=== PATIENT | female | born 1980 | race Caucasian/White ===

== ENCOUNTER 2016-05-05 17:28 | Emergency (ER) | payer MEDICAID ==
[~2016-05-05] VITALS: Ht 165.1 cm; Wt 63.0 kg
[2016-05-05 17:30] VITALS: Ht 165.1 cm; Wt 63.0 kg
[2016-05-05] MEDS ORDERED: ALBU8.5H INH (17:44)
[2016-05-05] MEDS ORDERED: FLUT1DIS3 INH (17:44)
[2016-05-05] MEDS ORDERED: IBUP-1724 PO (17:44)
[2016-05-05] MEDS ORDERED: SERT100T12 PO (17:44)
--- NOTE | 2016-05-05 17:47 | NUR ---
PROVIDER Ady COLE APPLE PICKING SUPERVISOR IN TO SEE PATIENT.
[2016-05-05] MEDS ORDERED: TRAM50TA4 PO (17:53)
[2016-05-05] MEDS ORDERED: CYCL-375 PO (17:53)
[2016-05-05] MEDS ORDERED: NAPR500T PO (17:53)
--- NOTE | 2016-05-05 17:53 | ERPDOC ---
Departure Disposition Decision Date: May 05, 2016 Disposition Decision Time: 17:50 (NICK COLE APRN) Disposition: 01 DISCHARGED HOME, SELF-CARE Impression Impression (NICK COLE APRN) Impression: Primary Impression: Back strain Encounter type: initial encounter Qualified Codes: S39.012A - Strain of muscle, fascia and tendon of lower back, initial encounter Severity: Moderate (NICK COLE APRN) Condition: Stable Seen By: Mid-level only (NICK COLE APRN) Referrals: IRIS GUILLEN (PCP) STEF HEBERT MD (Family) Patient Instructions: Acute Low Back Pain (ED) Problems/Meds/Labs Reviewed?: Yes Medications reviewed and manag: Yes (NICK COLE APRN) Additional Instructions: Take the Naproxen, Cyclobenzaprine, and the Tramadol as needed. If you are not improving in the next several days then please follow up with your primary care provider. Continue to use warm compresses and stretching as needed as well. Follow up care ordered?: Yes Mental Status: Alert (NICK COLE APRN) Scripts Tramadol HCl (Tramadol HCl) 50 Mg Tablet 50 MG PO Q6HR, #15 TAB 0 Refills Take 1 tablet, by mouth, every 6 hours. Prov: NICK COLE APRN 05/05/16 Naproxen (Naprosyn) 500 Mg Tablet 1 TAB PO BID, #20 TAB 0 Refills Prov: NICK COLE APRN 05/05/16 Cyclobenzaprine HCl (Cyclobenzaprine HCl) 10 Mg Tablet 1 TAB PO TID, #15 TAB 0 Refills Prov: NICK COLE APRN 05/05/16 HPI - Back Pain General Chief Complaint: Low Back Pain or Injury Stated Complaint: PAINFUL BACK Time Seen by Provider: 17:39 Source: patient Exam Limitations: no limitations (NICK COLE APRN) Time Seen by Provider: 17:39 (MARCEL YOUSSEF MD) HPI - Back Pain Initial Comments She was working out last week. Had felt a pop in her left side of her back but did not have pain at that time. The next day she stood up quickly from sitting at work and felt a pain in her back. Has persisted since then. Does not have a history of back pain. Denies any fever or chills at all. Has been taking Ibuprofen and resting all weekend. Pain is better when she is laying flat on her back. Is worried about going back to work tomorrow due to the pain. 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) Family 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 Family History: Negative (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,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) Social History Smoking Status: Never smoker Substance Use Type: does not use Alcohol Intake: none (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,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) Review of Systems Constitutional Constitutional: DENIES: chills, fatigue, fever, weakness (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,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) Cardiovascular Cardiac: DENIES: chest pain, orthopnea Rhythm/Rate: DENIES: irregular beat, palpitations (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,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) Pulmonary Respiratory: DENIES: cough, dyspnea, sputum, tachypnea (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,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) GI Upper Abdomen: DENIES: nausea, pain, vomiting Lower Abdomen: DENIES: constipation, diarrhea, pain (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,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) General: DENIES: dysuria, frequency, urgency (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,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) Musculoskeletal General: pain (bilateral back pain, lateral to the spine on the left and the right) (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,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) Integumentary Skin: DENIES: rash (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,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) Neurological General: DENIES: headache, numbness, tingling, weakness (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,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) Physical Exam General General Nourishment: well nourished, well developed, appears stated age, no acute distress, adult General Body Habitus: well groomed (NICK COLE APRN) Vitals and Pain First Documented Vital Signs Date Time Temp Pulse Resp B/P Pulse Ox O2 Delivery O2 Flow Rate FiO2 05/05/16 17:30 98.4 79 16 105/64 98 Room Air (MARCEL YOUSSEF MD) Vitals and Pain Weight: Kilograms: 63.000 Height (feet): 5 Height (inches): 5.00 Triage Pain Scale: (NICK COLE APRN) RN VS reviewed by Provider: Yes (NICK COLE APRN) Normal Exams: Neck: Full range of motion, without adenopathy, JVD, bruits or thyromegaly Chest/Resp: Clear all mary, with good airflow, and symmetry bilaterally CV: Regular rate and rhythm, without murmur or gallop, Pulses 2+ all extremities, capillary refill, <2 seconds all ext., no pedal edema noted Abdomen: Bowel sounds positive, soft, non-tender, non-distended, no hepatosplenomegaly, masses or bruits noted Lymphatic: No lymphadenopathy, or lymphedema noted Integumentary: No rashes, hives, or bruising noted Neurologic: Patient is alert, and oriented Psychiatric: Patient exhibits, appropriate attention, emotion and affect (NICK COLE APRN) Musculoskeletal (brief) Musculoskeletal Brief: FOUND: loss of motion (mildly due to stiffness. She does hold herself in a rigid upright position with her back straight so as not to fully extend the spine but not to slouch either.), tenderness (Mild TTP along the left and right lateral spine, denies any TTP along the spine, no step offs noted. BLE ), NOT FOUND: deformity (NICK COLE APRN) Differential Diagnoses Considering: Compression Fracture, Fracture, Lumbar Sprain, Lumbar Strain (NICK COLE APRN) Progress Results/Orders Orders Procedure Category Date Status Time Ketorolac (Toradol) PHA 05/05/16 Complete 18:00 Orphenadrine (Norflex) PHA 05/05/16 Complete 18:00 (MARCEL YOUSSEF MD) Orders Procedure Category Date Status Time Ketorolac (Toradol) PHA 05/05/16 In Process 18:00 Orphenadrine (Norflex) PHA 05/05/16 In Process 18:00 (NICK COLE APRN) Medications Current ED Medications Ketorolac Tromethamine (Toradol) 60 mg O ONCE IM Last administered on 17:57; Start 05/05/16 at 18:00; Stop 05/05/16 at 18:01; Status DC Orphenadrine Citrate (Norflex) 60 mg O ONCE IM Last administered on 05/05/16 17:57; Start 05/05/16 at 18:00; Stop 05/05/16 at 18:01; Status DC (MARCEL YOUSSEF MD) Medications Current ED Medications Ketorolac Tromethamine (Toradol) 60 mg O ONCE IM ; Start 05/05/16 at 18:00; Stop 05/05/16 at 18:01 Orphenadrine Citrate (Norflex) 60 mg O ONCE IM ; Start 05/05/16 at 18:00; Stop 05/05/16 at 18:01 (NICK COLE APRN) Progress Progress Will go ahead and give her an injection of toradol and norflex today. This does seem to be muscular in nature. Will send her home with Rx for Naproxen, Tramadol , Flexeril. F/U with her PCP this week. (NICK COLE APRN) NICK COLE APRN May 05, 2016 17:53 MARCEL YOUSSEF MD May 06, 2016 10:26
[2016-05-05] MEDS ORDERED: KETOROLAC 60mg/2ml INJECTION IM ONE (18:00)
[2016-05-05] MEDS ORDERED: ORPHENADRINE 60mg/2ml INJECTION IM ONE (18:00)
[2016-05-05 18:32] VITALS: BP 112/70; PULSE 80; RESP 16; TEMP 98.4; O2SAT 98
== END 2016-05-05 18:32 | disposition home or self-care (01) ==
LOC: ED 17:28
DX: S39.012A Strain of muscle, fascia and tendon of lower back, initial encounter (principal); X58.XXXA Exposure to other specified factors, initial encounter; Y93.89 Activity, other specified; Y92.009 Unspecified place in unspecified non-institutional (private) residence as the place of occurrence of the external cause; Y99.8 Other external cause status
CPT/HCPCS: 96372; 99283; J1885; J2360